=== PATIENT | male | born 1990 | race Hispanic/Latino ===

== ENCOUNTER 2019-07-13 13:19 | Emergency (ER) | payer BC ==
[2019-07-13] MEDS ORDERED: HYDROCODONE/APAP 5/325 MG TAB ONE (13:47)
[2019-07-13] MEDS ORDERED: TETANUS & DIPHTHERIA TOX,ADULT 0.5 ML VIAL ONE (13:48)
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
[2019-07-13 14:58] VITALS: TEMP 98.6
[2019-07-13 14:59] VITALS: BP 135/96; O2SAT 100
== END 2019-07-13 14:53 | disposition home or self-care (01) ==
LOC: ER 13:19
DX: S02.32XA Fracture of orbital floor, left side, initial encounter for closed fracture (principal); S02.832A Fracture of medial orbital wall, left side, initial encounter for closed fracture; Y04.2XXA Assault by strike against or bumped into by another person, initial encounter; Y93.9 Activity, unspecified; Y92.9 Unspecified place or not applicable
CPT/HCPCS: 70450; 70486; 76377; 90714; 99284